=== PATIENT | female | born 1990 | race Caucasian/White ===

== ENCOUNTER 2017-10-20 11:20 | Inpatient (IN) | payer SELFPAY ==
[~2017-10-20] VITALS: Ht 157.5 cm; Wt 66.8 kg
[~2017-10-20 11:20] MED LIST: AMOXICILLIN 8751 TAB PO; TRI-SPRINTEC 281 TAB
[2017-12-03] VITALS (65 sets, daily range): BP systolic 89–129; BP diastolic 50–76; PULSE 50–98; TEMP 98.1–98.3
[2017-12-03 08:04] LABS: BASO % 0.3 % (0.0-2.0); EOS # 0.1 (0.0-0.7); EOS % 1.6 % (0-4.0); GRAN % 71.4 % (42.2-75.2); HEMATOCRIT 37.7 % (37.0-47.0); HEMOGLOBIN 12.9 g/dl (12.5-16.0); LYMPH # 1.4 (1.2-3.4); LYMPH % 19.7 % (20.0-51.0); MEAN CELL VOLUME 91 fl (80.0-100.0); MEAN CORPUSCULAR HEMOGLOBIN 31 pg (27.0-31.0); MEAN CORPUSCULAR HGB CONC 34 g/dl (33.0-37.0); MEAN PLATELET VOLUME 10.9 fl (7.4-10.4); MONO # 0.5 (0.1-0.6); MONO % 6.7 % (1.7-9.3); PLATELET COUNT 158 K/mm3 (130-400); RED BLOOD COUNT 4.14 M/mm3 (4.10-5.30); REDCELL DISTRIBUTION WIDTH-CV 12.9 % (11.5-14.5)
[2017-12-04 00:20] VITALS: BP 103/59; PULSE 87
[2017-12-04 01:30] VITALS: BP 109/58; PULSE 81; TEMP 98.3
[2017-12-04 08:30] VITALS: BP 100/59; PULSE 74
[2017-12-04 16:33] VITALS: BP 1110/54; PULSE 74
[2017-12-04 20:15] VITALS: BP 104/66; PULSE 72; TEMP 98.3
[2017-12-05 09:03] VITALS: BP 109/54; PULSE 90
[2017-12-05] MEDS ORDERED: IBU600 MG PO (10:18)
[2017-12-05] MEDS ORDERED: PERCOCET 325 MG1 TA2 PO (10:19)
== END 2017-12-05 11:55 | disposition home or self-care (01) | DRG 775 ==
LOC: EDSTATUS 11-21 07:01 → LDRO 11-21 11:20 → LDR 12-03 07:02 → OB 12-04 00:30
PROVIDERS: Obstetrics & Gynecology
PROC: 10D07Z6 Extraction of Products of Conception, Vacuum, Via Natural or Artificial Opening (ICD-10-PCS; principal; 2017-12-03)
PROC: 3E033VJ Introduction of Other Hormone into Peripheral Vein, Percutaneous Approach (ICD-10-PCS; 2017-12-03)
PROC: 0KQM0ZZ Repair Perineum Muscle, Open Approach (ICD-10-PCS; 2017-12-03)
DX: O48.0 Post-term pregnancy (principal); O70.1 Second degree perineal laceration during delivery; O76 Abnormality in fetal heart rate and rhythm complicating labor and delivery; Z3A.42 42 weeks gestation of pregnancy; Z37.0 Single live birth
CPT/HCPCS: J2590; J7120